=== PATIENT | male | born 1985 | race Caucasian/White ===

== ENCOUNTER 2018-09-29 08:02 | Outpatient (CLI) | payer BC ==
[~2018-09-29] VITALS: Ht 170.2 cm; Wt 108.9 kg
[2018-09-29 08:44] LABS: APTT 34.2 SECONDS (22.8-39.4); INR 1.02 (0.85-1.17); PROTIME 12.9 SECONDS (11.6-15.0)
[2018-09-29 10:02] LABS: BASOPHILS 0.3 % (0-2); EOSINOPHILS 3.5 % (0-7); HEMATOCRIT 43.2 % (42.0-54.0); IMMATURE GRANULOCYTES 0.1 % (0-5); MCH 29.5 pg (26.0-34.0); MCHC 34.7 g/dL (31.0-37.0); MCV 84.9 fL (80.0-100.0); MONOCYTES 5.8 % (2-11); NEUTROPHILS 64.3 % (40-80); PLATELET COUNT 175 10x3/uL (130-400); RBC 5.09 10x6/uL (4.20-6.10); RDW 13.2 % (11.5-14.5)
[2018-09-29] MEDS ORDERED: FLUTICASONE PRO16 GM NASAL (11:40)
[2018-09-29] MEDS ORDERED: ATIVAN1 MG PO (11:41)
[2018-09-29] MEDS ORDERED: BUSPIRONE HCL7.5 MG PO (11:42)
[2018-09-29 11:52] VITALS: BP 137/91; Ht 170.2 cm; Wt 108.9 kg
[2018-09-29 16:22] LABS: MACROPHAGES BF 48 %; MESOTHELIALS BF 12 %; NEUT - BF 8 %
[2018-09-29 16:23] LABS: EOS BF 3 %; MACROPHAGES BF 59 %; MESOTHELIALS BF 4 %; NEUT - BF 14 %
[2018-09-29 16:25] LABS: EOS BF 3 %; MACROPHAGES BF 42 %; MESOTHELIALS BF 10 %; NEUT - BF 9 %
[2018-09-30 18:08] LABS: ACID FAST SMEAR Negative (()); AFB SPECIMEN PROCESSING Concentration (())
[2018-10-01 14:10] LABS: FUNGUS STAIN Final report (())
[2018-10-08 11:10] LABS: VIRAL - RESULT No virus isolated. (())
[2018-10-27 08:11] LABS: FUNGUS MYCOLOGY CULTURE Final report (())
== END 2018-09-29 15:08 ==
LOC: D.OPS 08:02
PROVIDERS: ATTEND Internal Medicine Pulmonary Disease
DX: R04.2 Hemoptysis (principal); R06.00 Dyspnea, unspecified; R05 Cough; J98.4 Other disorders of lung; J30.2 Other seasonal allergic rhinitis; K21.9 Gastro-esophageal reflux disease without esophagitis

== ENCOUNTER → 2018-10-19 14:40 | Outpatient (CLI) | payer BC ==
[2018-09-29 11:52] VITALS: BMI 37.7
[~2018-10-19 14:40] MED LIST: ATIVAN1 MG PO; BUSPIRONE HCL7.5 MG PO; FLUTICASONE PRO16 GM NASAL
[2018-10-20 08:12] LABS: IMMUNOGLOBULIN A 402 mg/dL (90-386); IMMUNOGLOBULIN G 998 mg/dL (700-1600); IMMUNOGLOBULIN M 103 mg/dL (20-172)
[2018-10-22 06:09] LABS: IMMUNOGLOBULIN E 65 IU/mL (6-495)
== END | disposition home or self-care (01) ==
LOC: D.LAB 13:00 → D.RT 14:00 → D.LAB 14:40
PROVIDERS: ATTEND Internal Medicine Pulmonary Disease
DX: J98.4 Other disorders of lung (principal); R05 Cough

== ENCOUNTER → 2020-07-31 13:07 | Outpatient (CLI) | payer BC ==
[2018-09-29 11:52] VITALS: BMI 37.7
== END | disposition home or self-care (01) ==
LOC: D.US 13:00
PROVIDERS: ATTEND Internal Medicine Pulmonary Disease
DX: R20.2 Paresthesia of skin (principal)

== ENCOUNTER → 2020-08-02 10:12 | Outpatient (CLI) | payer BC ==
[2018-09-29 11:52] VITALS: BMI 37.7
== END | disposition home or self-care (01) ==
LOC: D.LAB 10:12
PROVIDERS: ATTEND Internal Medicine Pulmonary Disease
DX: Z11.52 Encounter for screening for COVID-19 (principal)